=== PATIENT | female | born 1995 | race Asian ===

== ENCOUNTER 2017-05-05 15:19 | Emergency (ER) | payer OTHER ==
[2017-05-05 15:24] VITALS: BP 102/74; PULSE 77; RESP 18; TEMP 98.1; O2SAT 98
--- NOTE | 2017-05-05 17:26 | EDPHY ---
H & P Stated Complaint: pain in vaginal area since Wednesday Time Seen by Provider: 05/05/17 16:07 HPI/ROS: CHIEF COMPLAINT: Vaginal pain HISTORY OF PRESENT ILLNESS: This is a 22-year-old female with 3 days of a vaginal pain. She denies trauma. She is not sexually active. She has not had vaginal discharge. She denies dysuria, urgency, and frequency. She reports that the pain is on the left labia. She is not aware of swelling at that site. She has not had fever. She has never had anything like before. By her report , she has never had a pelvic examination or Pap smear. REVIEW OF SYSTEMS: A ten point review of systems was performed and is negative with the exception of the items mentioned in the HPI. Past medical history: Negative Past surgical history: Negative Social history: She is a student at the [employer]. She is originally from [place]. She is here with a roommate. General Appearance: Alert. Vital signs reviewed. Neck: No lymphadenopathy, supple. Respiratory: Lungs are clear to auscultation; no wheezes, rales, or rhonchi. Cardiovascular: Regular rate and rhythm; no murmur, rub, or gallop. Gastrointestinal: Abdomen is soft and nontender, no masses or organomegaly, bowel sounds normal. Genitalia: Patient has declined bimanual or speculum pelvic exam. External genitalia examined. There is a 3 mm ulcerated area on the left labia majora. No swelling, no fluctuance. Skin: Warm and dry, no rashes on exposed skin, normal color. Back: Nontender to palpation over the thoracolumbar spine. No CVAT. Extremities: No lower extremity edema, no calf tenderness or swelling. Neurological: Alert and oriented. Moving all four extremities easily and equally. Psychiatric: Normal affect. - Personal History LMP (Females 10-55): 1-7 Days Ago Current Tetanus/Diphtheria Vaccine: No Current Tetanus Diphtheria and Acellular Pertussis (TDAP): No - Medical/Surgical History Hx Asthma: No Hx Chronic Respiratory Disease: No Hx Diabetes: No Hx Cardiac Disease: No Hx Renal Disease: No Hx Cirrhosis: No Hx Alcoholism: No Hx HIV/AIDS: No Hx Splenectomy or Spleen Trauma: No Other PMH: none reported - Social History Smoking Status: Never smoked Constitutional: Initial Vital Signs Temperature (C) 36.7 C 05/05/17 15:22 Heart Rate 77 05/05/17 15:22 Respiratory Rate 18 05/05/17 15:22 Blood Pressure 102/74 05/05/17 15:22 O2 Sat (%) 98 05/05/17 15:22 O2 Delivery Mode Room Air Allergies/Adverse Reactions: No Known Allergies Allergy (Unverified 05/05/17 15:21) Home Medications: Medication Instructions Recorded Acyclovir 400 mg PO TID #21 tablet 05/05/17 Anti Inflammatory 05/05/17 Medical Decision Making ED Course/Re-evaluation: 22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 My concern is that this could be herpes. Herpes culture was obtained. She is being started on antiviral medication. Given her history , herpes seems somewhat unlikely. However I think it is prudent to begin antiviral medication while awaiting culture results. She denies any trauma but the painful area looks like an abrasion. There is nothing in the history or the physical to suggest an infection. She does not have swelling and I do not think that this is a Bartholin's cyst or abscess of any kind. I have no reason to suspect malignancy. I have advised her to be followed up by Gynecology if she does not improve over the next day or 2. We discussed symptomatic treatment that she can use in the meanwhile. Departure - Departure Disposition: Home, Routine, Self-Care Clinical Impression: Labial pain Condition: Good Instructions: Genital Herpes Simplex (ED) Additional Instructions: I am giving information about herpes. I do NOT know for sure that this is what is causing your pain. I am starting the medication that you would take for herpes. We have done a culture but the results will not be available for 2-3 days. You need to follow up, either at [facility] or with a inspector agricultural commodities (specializing in female problems). I am giving you the name of a inspector agricultural commodities to call for follow up. Referrals: [facility] [Outside] - As per Instructions Rachel Mitchell DO [Doctor of Osteopathy] - As per Instructions Stand Alone Forms: Work Excuse Prescriptions: Acyclovir 400 mg PO TID #21 tablet
[2017-05-06 20:26] LABS: SPECIMEN SOURCE LABIA
== END 2017-05-05 18:01 | disposition home or self-care (01) ==
DX: N90.89 Other specified noninflammatory disorders of vulva and perineum (principal)
CPT/HCPCS: 87529-90